=== PATIENT | female | born 1975 | race Caucasian/White ===

== ENCOUNTER 2018-06-03 23:29 | Observation (INO) | payer BC ==
[~2018-06-03] VITALS: Ht 162.6 cm; Wt 109.3 kg
[2018-06-04 00:10] LABS: BASO % 0.3 % (0.0-2.0); EOS # 0.3 (0.0-0.7); EOS % 2.9 % (0-4.0); GRAN # 7.5 (1.4-6.5); GRAN % 73.9 % (42.2-75.2); HEMATOCRIT 38.7 % (37.0-47.0); HEMOGLOBIN 12.9 g/dl (12.5-16.0); LYMPH # 1.8 (1.2-3.4); LYMPH % 17.9 % (20.0-51.0); MEAN CELL VOLUME 90 fl (80.0-100.0); MEAN CORPUSCULAR HEMOGLOBIN 30 pg (27.0-31.0); MEAN CORPUSCULAR HGB CONC 33 g/dl (33.0-37.0); MEAN PLATELET VOLUME 9.4 fl (7.4-10.4); MONO # 0.5 (0.1-0.6); MONO % 4.5 % (1.7-9.3); PLATELET COUNT 245 K/mm3 (130-400); RED BLOOD COUNT 4.29 M/mm3 (4.10-5.30); REDCELL DISTRIBUTION WIDTH-CV 12.6 % (11.5-14.5)
[2018-06-04 00:24] LABS: ALANINE AMINOTRANSFERASE 23 U/L (9-52); ALBUMIN 3.7 gm/dL (3.5-5.0); ALKALINE PHOSPHATASE 63 U/L (50-136); ANION GAP 10 mmol/L (7-16); AST,SGOT 14 U/L (15-37); BILIRUBIN,TOTAL 0.5 mg/dL (0.0-1.0); BLOOD UREA NITROGEN 6 mg/dL (7-17); C-REACTIVE PROTEIN 7.8 mg/dL (0.0-0.9); CALCIUM 8.5 mg/dL (8.4-10.2); CARBON DIOXIDE 24 mmol/L (22-30); CHLORIDE 100 mmol/L (98-107); CREATININE, serum 0.56 mg/dL (0.52-1.25); GLUCOSE 292 mg/dL (74-106); POTASSIUM 3.5 mmol/L (3.4-5.0); SODIUM 134 mmol/L (137-145); TOTAL PROTEIN 6.7 gm/dL (6.4-8.2)
[2018-06-04 00:25] LABS: PARTIAL THROMBOPLASTIN TIME 31.2 SECONDS (26.0-37.0); PROTHROMBIN TIME 11.9 SECONDS (9.7-12.8)
[2018-06-04 00:34] LABS: TROPONIN-I < 0.012 ng/mL (0.000-0.034)
[2018-06-04] MEDS ORDERED: AMARYL1 MG PO (01:55)
[2018-06-04] MEDS ORDERED: LITHIUM 30300 MG/CAP PO (01:56)
[2018-06-04] MEDS ORDERED: LAMICTAL200 MG PO (01:56)
[2018-06-04] MEDS ORDERED: SYNTHROID 0.0.025 MG PO (01:57)
[2018-06-04] MEDS ORDERED: ZYRTEC5 MG PO (01:58)
[2018-06-04] MEDS ORDERED: LOPRESSOR 225 MG/TAB PO (01:58)
[2018-06-04 02:17] LABS: COLLECTION METHOD CLEAN CATCH
[2018-06-04 02:28] LABS: MUCOUS Present /lpf; PH 5 (5-8); SQUAMOUS EPITHELIAL 0-2 /hpf; URINE APPEARANCE Clear; URINE BACTERIA None Seen /hpf; URINE BILIRUBIN Negative (NEGATIVE); URINE BLOOD Negative (NEGATIVE); URINE COLOR Yellow; URINE GLUCOSE 3+ (NEGATIVE); URINE KETONE Trace (NEGATIVE); URINE LEUKOCYTE ESTERASE Negative (NEGATIVE); URINE NITRATE Negative (NEGATIVE); URINE PROTEIN(semi-quant) Negative (NEGATIVE)
[2018-06-04 03:30] VITALS: BP 117/50; PULSE 82; TEMP 98.9
[2018-06-04] MEDS ORDERED: AMARYL 2MG T2 MG/TAB PO (03:48)
[2018-06-04 05:44] LABS: TROPONIN-I 3 HR POST INITIAL < 0.012 ng/mL (0.000-0.034)
[2018-06-04 09:00] VITALS: BP 130/60; PULSE 60; TEMP 97.9
[2018-06-04 12:20] VITALS: BP 137/70; PULSE 90; TEMP 98
[2018-06-04 16:29] VITALS: BP 117/60; PULSE 92; TEMP 98.2
[2018-06-04 20:26] VITALS: BP 129/52; PULSE 92; TEMP 97.7
[2018-06-04 23:38] VITALS: BP 122/54; PULSE 79; TEMP 98.3
[2018-06-05 04:10] VITALS: BP 127/46; PULSE 74; TEMP 98.5
[2018-06-05 06:49] VITALS: BP 110/51; PULSE 68; TEMP 98.3
[2018-06-05 11:55] VITALS: BP 115/53; PULSE 82; TEMP 97.5
[2018-06-05] MEDS ORDERED: PROAIR HFA0.09 MG/AC IH (14:16)
[2018-06-05] MEDS ORDERED: MONODOX100 PO (14:16)
[2018-06-05] MEDS ORDERED: RT ADVAIR HFA 1112 G IH (14:17)
[2018-06-05] MEDS ORDERED: TESSALON P100 MG/CAP PO (14:17)
[2018-06-05] MEDS ORDERED: MUCINEX1200 MG PO (14:17)
[2018-06-05] MEDS ORDERED: PREDNISONE1 MG PO (14:18)
== END 2018-06-05 15:42 | disposition home or self-care (01) ==
LOC: COL.ER 23:29 → MEDICAL 06-04 02:04
PROVIDERS: Emergency Medicine
DX: J96.01 Acute respiratory failure with hypoxia (principal); E11.9 Type 2 diabetes mellitus without complications; F31.81 Bipolar II disorder; F17.210 Nicotine dependence, cigarettes, uncomplicated; G47.33 Obstructive sleep apnea (adult) (pediatric); E03.9 Hypothyroidism, unspecified; Z90.49 Acquired absence of other specified parts of digestive tract; Z79.84 Long term (current) use of oral hypoglycemic drugs; Z83.3 Family history of diabetes mellitus; Z82.5 Family history of asthma and other chronic lower respiratory diseases
CPT/HCPCS: G0378; J1650; J1815; J2930; J7030

== ENCOUNTER → 2018-10-22 | Outpatient (CLI) | payer BC ==
[~2018-10-22] MED LIST: AMARYL 2MG T2 MG/TAB PO; AMARYL1 MG PO; LAMICTAL200 MG PO; LITHIUM 30300 MG/CAP PO; LOPRESSOR 225 MG/TAB PO; MONODOX100 PO; MUCINEX1200 MG PO; PREDNISONE1 MG PO; PROAIR HFA0.09 MG/AC IH; RT ADVAIR HFA 1112 G IH; SYNTHROID 0.0.025 MG PO; TESSALON P100 MG/CAP PO; ZYRTEC5 MG PO
[2018-10-22 16:44] LABS: CALCIUM 9.2 mg/dL (8.4-10.2); CHOLESTEROL RISK RATIO 5.2; CREATININE, serum 0.6 mg/dL (0.52-1.25); POTASSIUM 4.1 mmol/L (3.4-5.0)
[2018-10-22 17:13] LABS: THYROID STIMULATING HORMONE 1.52 uIU/mL (0.465-4.680)
[2018-10-23 01:17] LABS: CREATININE OTHER SOURCE 57 mg/dL (()); URINE MICROALBUMIN <0.5 mg/dL (0.0-1.7)
== END ==
LOC: ZCOL.LAB 16:04
PROVIDERS: Family Medicine
DX: E11.9 Type 2 diabetes mellitus without complications (principal); E03.9 Hypothyroidism, unspecified

== ENCOUNTER → 2019-02-11 | Outpatient (CLI) | payer BC ==
[2019-02-11 17:01] LABS: ALBUMIN 3.7 gm/dL (3.5-5.0); BILIRUBIN,TOTAL 0.4 mg/dL (0.0-1.0); CALCIUM 9.2 mg/dL (8.4-10.2); CREATININE, serum 0.67 (0.52-1.25); TOTAL PROTEIN 6.6 gm/dL (6.4-8.2)
== END ==
LOC: COL.LAB 13:01
PROVIDERS: Family Medicine
DX: R10.13 Epigastric pain (principal)

== ENCOUNTER → 2019-04-08 | Outpatient (CLI) | payer BC | LOC: COL.RAD 13:47 | DX: M19.072 Primary osteoarthritis, left ankle and foot (principal); M77.32 Calcaneal spur, left foot ==

== ENCOUNTER → 2020-07-27 | Outpatient (CLI) | payer BC | LOC: COL.RAD 09:19 | DX: L03.115 Cellulitis of right lower limb (principal) | CPT/HCPCS: A9585 ==